=== PATIENT | female | born 1925 | race Caucasian/White ===

== ENCOUNTER 2016-11-20 10:22 | Inpatient (IN) | payer MEDICARE, OTHER ==
[2016-11-20 10:36] VITALS: BMI 29.2
[2016-11-20 12:33] LABS: BASO # 0.1 K/uL (0.0-0.2); EOS # 0.7 K/uL (0.0-0.7); EOS % 7.6 % (0.0-4.0); LYMPH # 1.4 K/uL (1.0-4.3); LYMPH % 16.5 % (20.0-40.0); MEAN CELL VOLUME 94.1 fL (81.0-99.0); MEAN CORPUSCULAR HEMOGLOBIN 30.6 pg (27.0-31.0); MEAN CORPUSCULAR HGB CONC 32.6 g/dL (33.0-37.0); MEAN PLATELET VOLUME 9.7 fL (7.2-11.7); MONO # 0.6 K/uL (0.0-0.8); MONO % 7.1 % (0.0-10.0); NRBC % 0.1 % (0.0-2.0); RED CELL DISTRIBUTION WIDTH 13.9 % (11.5-14.5); WHITE BLOOD COUNT 8.8 K/uL (4.8-10.8)
[2016-11-20 12:40] LABS: INR 1.3
[2016-11-20 12:42] LABS: CHLORIDE 103 mmol/L (98-107)
[2016-11-20 12:43] LABS: POTASSIUM 4.2 mmol/L (3.6-5.2); SODIUM 141 mmol/L (132-148)
[2016-11-20 12:45] LABS: AST/SGOT 30 U/L (14-36); BILIRUBIN,TOTAL 0.8 mg/dL (0.2-1.3); CARBON DIOXIDE 30 mmol/L (22-30); GFR AFRICAN-AMERICAN > 60
[2016-11-20 12:46] LABS: ALKALINE PHOSPHATASE 81 U/L (38-126); ALT/SGPT 19 U/L (9-52); BLOOD UREA NITROGEN 24 mg/dL (7-17); CALCIUM 8.8 mg/dl (8.6-10.4); GLUCOSE,RANDOM 119 mg/dL (65-105); TOTAL PROTEIN 7.4 g/dL (6.3-8.3)
[2016-11-20 12:49] LABS: RBC URINE 4989 /hpf (0-3); URINE BILIRUBIN NEGATIVE (NEGATIVE); URINE BLOOD 3+ (NEGATIVE); URINE GLUCOSE (UA) NORMAL (Normal); URINE KETONE TRACE mg/dL (NEGATIVE); URINE LEUKOCYTE ESTERASE 1+ Leu/uL (Negative); URINE PROTEIN 2+ mg/dL (NEGATIVE); WBC URINE 108 /hpf (0-5)
[2016-11-20 12:50] LABS: URINE COLOR RED (YELLOW)
[2016-11-20] MEDS ORDERED: cefTRIAXone IV 1 gm in Dextros 50 ML IV ONE (13:25)
[2016-11-20] MEDS ORDERED: cefTRIAXone IV 1 gm in Dextros 50 ML IVPB ONE (13:40)
--- NOTE | 2016-11-20 13:58 | C.PDOC ---
History Of Present Illness 89 yr old female presents to the ER with complaints of hematuria since yesterday. Patient also notes of urinary frequency. Reports a history of UTI 2 months ago treated with abx. Denies vaginal bleeding, fever, nausea, vomiting, abdominal pain, dysuria or incontinence. Time Seen by Provider: 11/20/16 11:33 Chief Complaint (Nursing): Female Genitourinary History Per: Patient, Family (Daughter ) History/Exam Limitations: no limitations Onset/Duration Of Symptoms: Days (1) Past Medical History Reviewed: Historical Data, Nursing Documentation, Vital Signs Vital Signs: Last Vital Signs Temp 99.0 F 11/20/16 15:00 Pulse 66 11/20/16 15:00 Resp 18 11/20/16 15:00 BP 138/87 11/20/16 15:00 Pulse Ox 95 11/20/16 15:00 - Medical History PMH: Atrial Fibrillation, Gastrointestinal Ulcer, HTN Family History: States: No Known Family Hx - Social History Hx Alcohol Use: No Hx Substance Use: No - Immunization History Hx Tetanus Toxoid Vaccination: No Hx Influenza Vaccination: Yes (2016) Hx Pneumococcal Vaccination: Yes (2016) Review Of Systems Except As Marked, All Systems Reviewed And Found Negative. Constitutional: Negative for: Fever Gastrointestinal: Negative for: Nausea, Vomiting, Abdominal Pain Genitourinary: Positive for: Frequency (Urinary ), Hematuria. Negative for: Dysuria, Incontinence Physical Exam - Physical Exam Appears: Well, Non-toxic, No Acute Distress Skin: Warm, Dry, No Rash Head: Atraumatic, Normacephalic Eye(s): bilateral: Normal Inspection, EOMI Nose: Normal Oral Mucosa: Moist Chest: Symmetrical, No Tenderness Cardiovascular: Rhythm Regular, No Murmur Respiratory: Normal Breath Sounds, No Rales, No Rhonchi, No Wheezing Gastrointestinal/Abdominal: Soft, No Tenderness, No Guarding, No Rebound, Hernia Back: No CVA Tenderness, No Vertebral Tenderness Extremity: Normal ROM, No Swelling Neurological/Psych: Oriented x3, Normal Speech, Normal Motor ED Course And Treatment - Laboratory Results Result Diagrams: 11/20/16 12:28 11/20/16 12:28 O2 Sat by Pulse Oximetry: 98 Progress Note: PLAN: CBC, CMP, PTT, Urinalysis & Rocephin IV. Case discsused with Dr. Shailesh Patel regarding the patient and agreed upon admission. Disposition - Disposition Disposition: HOSPITALIZED Disposition Time: 14:00 Condition: STABLE - Clinical Impression Clinical Impression: Hematuria, UTI (urinary tract infection) - PA / [employer] / Resident Statement MD/DO has reviewed & agrees with the documentation as recorded. - Scribe Statement The provider has reviewed the documentation as recorded by the Scribe Michell Reyes All medical record entries made by the Koreyibe were at my direction and personally dictated by me. I have reviewed the chart and agree that the record accurately reflects my personal performance of the history, physical exam, medical decision making, and the department course for this patient. I have also personally directed, reviewed, and agree with the discharge instructions and disposition.
--- NOTE | 2016-11-20 17:38 | CP.PCM.HP ---
Past Patient History - Past Social History Smoking Status: Former Smoker - CARDIAC Hx Atrial Fibrillation: Yes Hx Hypertension: Yes - GASTROINTESTINAL Hx Gastrointestinal Disorders: Yes Hx Gastroesophageal Reflux: Yes - PSYCHIATRIC Hx Substance Use: No Meds Allergies/Adverse Reactions: Allergies Allergy/AdvReac Type Severity Reaction Status Date / Time No Known Allergies Allergy Verified 11/20/16 10:35 Physical Exam - Constitutional Appears: Well - Head Exam Head Exam: ATRAUMATIC, NORMAL INSPECTION, NORMOCEPHALIC - Eye Exam Eye Exam: EOMI, Normal appearance, PERRL Pupil Exam: NORMAL ACCOMODATION, PERRL - ENT Exam ENT Exam: Mucous Membranes Moist, Normal Exam - Neck Exam Neck exam: Positive for: Normal Inspection - Respiratory Exam Respiratory Exam: Decreased Breath Sounds - Cardiovascular Exam Cardiovascular Exam: REGULAR RHYTHM, +S1, +S2 - GI/Abdominal Exam GI & Abdominal Exam: Diminished Bowel Sounds, Soft - Rectal Exam Rectal Exam: Deferred Results - Vital Signs Recent Vital Signs: Last Vital Signs Temp 99.0 F 11/20/16 15:00 Pulse 66 11/20/16 15:00 Resp 18 11/20/16 15:00 BP 138/87 11/20/16 15:00 Pulse Ox 95 11/20/16 15:00 - Labs Result Diagrams: 11/20/16 12:28 11/20/16 12:28
[2016-11-20] MEDS ORDERED: Moxifloxacin IV 400mg/250ml NS 400 MG/250 ML BAG IVPB SCH (18:30)
[2016-11-20] MEDS ORDERED: Ciprofloxacin 400mg/200ml D5W 400 MG/200 ML BAG IVPB ONE (20:41)
[2016-11-20] MEDS: Ciprofloxacin 400mg/200ml D5W 400 MG/200 ML BAG IVPB SCH (21:00)
[2016-11-21] MEDS: Ciprofloxacin 400mg/200ml D5W 400 MG/200 ML BAG IVPB SCH ×2 (05:50→18:22)
--- NOTE | 2016-11-21 12:09 | CP.PCM.PN ---
Subjective - Date & Time of Evaluation Date of Evaluation: 11/21/16 Time of Evaluation: 10:00 - Subjective Subjective: service note: Patient is seen in room with her daughter present. History is obtained from daughter. She says the past two days she has been having hematuria with dark red blood and clots. She denies having any fever, chills, nausea, vomiting, or diarrhea. Objective - Vital Signs/Intake and Output Vital Signs (last 24 hours): Temp Pulse Resp BP Pulse Ox 98.8 F 87 20 135/81 98 11/21/16 09:33 11/21/16 11:24 11/21/16 09:33 11/21/16 11:24 11/21/16 11:24 Intake and Output: 11/21/16 11/21/16 06:59 18:59 Intake Total 120 320 Balance 120 320 - Medications Medications: Current Medications Ferrous Sulfate (Feosol) 325 mg PO DAILY [facility] Home Med (Donepezil Hcl [Aricept Odt]) 10 mg PO DAILY [facility] Ciprofloxacin (Cipro 400mg/200ml Dsw) 400 mg in 200 mls @ 133 mls/hr IVPB Q12H [facility] Last Admin: 11/21/16 05:50 Dose: 133 mls/hr - Labs Labs: PT 15.5 SECONDS (9.7-12.2) H 11/20/16 12:28 INR 1.3 11/20/16 12:28 APTT 35 SECONDS (21-34) H 11/20/16 12:28 - Constitutional Appears: Non-toxic, No Acute Distress - Head Exam Head Exam: NORMAL INSPECTION - Eye Exam Eye Exam: Normal appearance - ENT Exam ENT Exam: Normal Exam - Respiratory Exam Respiratory Exam: Clear to Ausculation Bilateral. absent: Rales, Rhonchi, Wheezes - Cardiovascular Exam Cardiovascular Exam: REGULAR RHYTHM, RRR, +S1, +S2. absent: Gallop, Rubs - GI/Abdominal Exam GI & Abdominal Exam: Soft, Normal Bowel Sounds. absent: Tenderness - Extremities Exam Extremities Exam: Normal Inspection. absent: Pedal Edema - Psychiatric Exam Psychiatric exam: Normal Affect, Normal Mood - Skin Skin Exam: Normal Color, Warm Assessment and Plan (1) UTI (urinary tract infection) Assessment & Plan: Patient on IV Cipro, will follow up culture senstivity. Will most likely dc tomorrow. Status: Acute (2) Hematuria Assessment & Plan: Dr. Yuan consulted, help appreciated, he suggested a CT scan and most likely can follow up as an outpatient. We have ordered a CT scan which we will follow up the results. Status: Acute (3) Iron (Fe) deficiency anemia Assessment & Plan: continue her Feosol Status: Acute (4) Dementia Assessment & Plan: continue home medication for now. Status: Acute (5) Prophylactic measure Assessment & Plan: pepcid 20mg, SCDS, hold VTE due to hematuria. Status: Acute
--- NOTE | 2016-11-21 12:50 | CP.PCM.PN ---
Subjective - Date & Time of Evaluation Date of Evaluation: 11/21/16 Time of Evaluation: 12:46 - Subjective Subjective: 89 year old hisp female admitted with gross hematuria,Urine C&S is positive and pt is on antibiotics gross hematuria has stopped.A hemmoragic cystitis. Suggest full course Rx with sensitive antibiotics, ct abdomen and pelvid to ro stone or mass or obstruction, pt should have cysto after uti fully treated this may be done as out patient Objective - Vital Signs/Intake and Output Vital Signs (last 24 hours): Temp Pulse Resp BP Pulse Ox 98.8 F 87 20 135/81 98 11/21/16 09:33 11/21/16 11:24 11/21/16 09:33 11/21/16 11:24 11/21/16 11:24 Intake and Output: 11/21/16 11/21/16 06:59 18:59 Intake Total 120 320 Balance 120 320 - Medications Medications: Current Medications Donepezil HCl (Aricept) 10 mg PO DAILY [facility] Ferrous Sulfate (Feosol) 325 mg PO DAILY [facility] Ciprofloxacin (Cipro 400mg/200ml Dsw) 400 mg in 200 mls @ 133 mls/hr IVPB Q12H [facility] Last Admin: 11/21/16 05:50 Dose: 133 mls/hr - Labs Labs: PT 15.5 SECONDS (9.7-12.2) H 11/20/16 12:28 INR 1.3 11/20/16 12:28 APTT 35 SECONDS (21-34) H 11/20/16 12:28
--- NOTE | 2016-11-21 13:40 | CP.PCM.PN ---
Subjective - Date & Time of Evaluation Date of Evaluation: 11/21/16 Time of Evaluation: 09:40 - Subjective Subjective: clinically same Objective - Vital Signs/Intake and Output Vital Signs (last 24 hours): Temp Pulse Resp BP Pulse Ox 98.8 F 87 20 135/81 98 11/21/16 09:33 11/21/16 11:24 11/21/16 09:33 11/21/16 11:24 11/21/16 11:24 Intake and Output: 11/21/16 11/21/16 06:59 18:59 Intake Total 120 320 Balance 120 320 - Medications Medications: Current Medications Donepezil HCl (Aricept) 10 mg PO DAILY [facility] Ferrous Sulfate (Feosol) 325 mg PO DAILY [facility] Last Admin: 11/21/16 12:50 Dose: 325 mg Ciprofloxacin (Cipro 400mg/200ml Dsw) 400 mg in 200 mls @ 133 mls/hr IVPB Q12H [facility] Last Admin: 11/21/16 05:50 Dose: 133 mls/hr - Labs Labs: PT 15.5 SECONDS (9.7-12.2) H 11/20/16 12:28 INR 1.3 11/20/16 12:28 APTT 35 SECONDS (21-34) H 11/20/16 12:28 - Constitutional Appears: Well - Head Exam Head Exam: ATRAUMATIC, NORMAL INSPECTION, NORMOCEPHALIC - Eye Exam Eye Exam: EOMI, Normal appearance, PERRL Pupil Exam: NORMAL ACCOMODATION, PERRL - ENT Exam ENT Exam: Mucous Membranes Moist, Normal Exam - Neck Exam Neck Exam: Full ROM, Normal Inspection. absent: Lymphadenopathy - Respiratory Exam Respiratory Exam: Decreased Breath Sounds - Cardiovascular Exam Cardiovascular Exam: REGULAR RHYTHM, +S1, +S2 - GI/Abdominal Exam GI & Abdominal Exam: Soft, Diminished Bowel Sounds - Rectal Exam Rectal Exam: Deferred Assessment and Plan (1) HTN (hypertension) Status: Acute (2) Osteoporosis Status: Acute (3) Hypercholesterinemic xanthomatosis Status: Acute (4) Hematuria Status: Acute (5) UTI (urinary tract infection) Status: Acute - Assessment and Plan (Free Text) Plan: Abnormal bleeding either in the urine or bite. [employer]GER consult as an outpatient Dr. Hussein saw the patient use he has pending abdominal CT scan today I spoke to the daughter
--- NOTE | 2016-11-21 14:14 | CT ---
PROCEDURE: CT Abdomen and Pelvis without Oral or IV contrast. HISTORY: hematuria COMPARISON: None available. TECHNIQUE: Contiguous axial images of the abdomen and pelvis. No oral or IV contrast administered. Coronal and Sagittal reformats generated and reviewed. Radiation dose: Total exam DLP = 583.87 mGy-cm. This CT exam was performed using one or more of the following dose reduction techniques: Automated exposure control, adjustment of the mA and/or kV according to patient size, and/or use of iterative reconstruction technique. FINDINGS: There is limited evaluation of the solid organs without the administration of IV contrast. LOWER THORAX: Partially imaged cardiomegaly. Dense coronary artery calcifications. Mild basilar atelectasis. No visible consolidation or pleural effusion. Ground-glass nodular density at the right lung base, possibly infectious or inflammatory. Nodule cannot be entirely excluded. Left pleural plaque, which suggests asbestos related pleural disease. Small hiatal hernia. LIVER: Unremarkable unenhanced appearance. GALLBLADDER AND BILE DUCTS: Cholecystectomy. PANCREAS: Unremarkable unenhanced appearance. SPLEEN: Unremarkable unenhanced appearance. ADRENALS: Bilateral adrenal gland hypertrophy. KIDNEYS AND URETERS: No hydronephrosis or obstructing renal calculus. Prominence of bilateral (right greater than left) ureters. No obstructing calculus identified. BLADDER: Under distention of the urinary bladder precludes adequate evaluation. REPRODUCTIVE: Uterus is present. APPENDIX: Not visualized. No secondary signs of acute appendicitis. BOWEL: The stomach is nondistended. Lack of oral contrast limits evaluation for bowel pathology. The bowel loops appear within normal limits of caliber without evidence of intestinal obstruction. Proximal duodenal diverticulum. Extensive diverticulosis without CT evidence of acute diverticulitis. PERITONEUM: No significant free fluid. No definite free air. LYMPH NODES: No bulky lymphadenopathy identified. VASCULATURE: Dense atherosclerotic calcifications of the aorta and branches. No aortic aneurysm. BONES: Osseous demineralization. Multilevel degenerative changes. Evidence of vertebroplasty at L1. OTHER FINDINGS: Bowel containing anterior abdominal wall hernias/rectus diastases without obstruction. Lower anterior abdominal wall hernia contains both bowel and portions of the urinary bladder. IMPRESSION: No hydronephrosis or obstructing renal calculus. Prominence of bilateral (right greater than left) ureters ; ureteritis is not excluded. No obstructing calculus identified. Under distention of the urinary bladder precludes adequate evaluation. Correlation with urinalysis in order to exclude possibility of infection. Extensive diverticulosis without CT evidence of acute diverticulitis. Bowel containing anterior abdominal wall hernias/rectus diastases without obstruction. Lower anterior abdominal wall hernia contains both bowel and portions of the urinary bladder. Ground-glass nodular density at the right lung base, possibly infectious or inflammatory. Nodule cannot be entirely excluded. Guidelines by the Fleischner society (radiology 2005; 237:395-400) suggests that in patients with low risk for lung cancer, nodules from 5 mm to 6 mm in diameter should have follow-up in approximately 12 months. In patients with high-risk, such as those were smokers, follow-up is recommended in 6 months. Patients with a known malignancy or risk for metastases should receive 3 month follow-up. Additional findings as above.
[2016-11-22] MEDS: Ciprofloxacin 400mg/200ml D5W 400 MG/200 ML BAG IVPB SCH (06:14)
[2016-11-22 08:01] LABS: BASO # 0.1 K/uL (0.0-0.2); BASO % 1.1 % (0.0-2.0); EOS # 0.6 K/uL (0.0-0.7); EOS % 10.5 % (0.0-4.0); HEMATOCRIT 45.2 % (34.0-47.0); LYMPH # 1.2 K/uL (1.0-4.3); LYMPH % 20.7 % (20.0-40.0); MEAN CELL VOLUME 93.2 fL (81.0-99.0); MEAN CORPUSCULAR HEMOGLOBIN 30.6 pg (27.0-31.0); MEAN CORPUSCULAR HGB CONC 32.8 g/dL (33.0-37.0); MEAN PLATELET VOLUME 9.1 fL (7.2-11.7); MONO # 0.4 K/uL (0.0-0.8); MONO % 7.2 % (0.0-10.0); NRBC % 0.1 % (0.0-2.0); RED CELL DISTRIBUTION WIDTH 13.8 % (11.5-14.5); WHITE BLOOD COUNT 5.6 K/uL (4.8-10.8)
[2016-11-22 09:35] LABS: CHLORIDE 101 mmol/L (98-107); SODIUM 139 mmol/L (132-148)
[2016-11-22 09:36] LABS: POTASSIUM 3.8 mmol/L (3.6-5.2)
[2016-11-22 09:38] LABS: ALKALINE PHOSPHATASE 72 U/L (38-126); AST/SGOT 29 U/L (14-36); BILIRUBIN,TOTAL 0.7 mg/dL (0.2-1.3); BLOOD UREA NITROGEN 13 mg/dL (7-17); CARBON DIOXIDE 31 mmol/L (22-30); GFR AFRICAN-AMERICAN > 60; GLUCOSE,RANDOM 102 mg/dL (65-105); PHOSPHOROUS 3.4 mg/dL (2.5-4.5); TOTAL PROTEIN 7.1 g/dL (6.3-8.3)
[2016-11-22 09:39] LABS: ALT/SGPT 16 U/L (9-52); CALCIUM 8.9 mg/dl (8.6-10.4); MAGNESIUM 2.1 mg/dL (1.6-2.3)
[2016-11-22] MEDS ORDERED: Ergocalciferol 50,000 Intl Units Cap PO SCH (10:00)
[2016-11-22 10:24] VITALS: BP 142/80; PULSE 60; RESP 20; TEMP 98; O2SAT 96
[2016-11-22] MEDS ORDERED: cefTRIAXone IV 1 gm in Dextros 50 ML IVPB SCH (11:00)
--- NOTE | 2016-11-22 11:13 | CP.PCM.PN ---
Subjective - Date & Time of Evaluation Date of Evaluation: 11/22/16 Time of Evaluation: 11:00 - Subjective Subjective: Dr. Josse Patel note: Patient is seen in room. She has no complaints. She did have one episode of emesis pre nursing staff that resolved after recieving 4mg of Zofran. She says she has no more hematuria or painful urination. Objective - Vital Signs/Intake and Output Vital Signs (last 24 hours): Temp Pulse Resp BP Pulse Ox 98 F 60 20 142/80 96 11/22/16 08:00 11/22/16 08:00 11/22/16 08:00 11/22/16 08:00 11/22/16 08:00 Intake and Output: 11/22/16 11/22/16 06:59 18:59 Intake Total 940 Balance 940 - Medications Medications: Current Medications Ascorbic Acid (Vitamin C 500 Mg Tab) 500 mg PO DAILY [facility] Last Admin: 11/22/16 09:09 Dose: 500 mg Diltiazem HCl (Cardizem) 60 mg PO DAILY [facility] Last Admin: 11/22/16 09:10 Dose: 60 mg Donepezil HCl (Aricept) 10 mg PO DAILY [facility] Last Admin: 11/22/16 09:10 Dose: 10 mg Ergocalciferol (Drisdol 50,000 Intl Units Cap) 1 cap PO QWK [facility] Last Admin: 11/22/16 09:10 Dose: 1 cap Famotidine (Pepcid) 20 mg PO DAILY [facility] Last Admin: 11/22/16 09:10 Dose: 20 mg Ferrous Sulfate (Feosol) 325 mg PO DAILY [facility] Last Admin: 11/22/16 09:10 Dose: 325 mg Ceftriaxone Sodium (Rocephin Iv 1 Gm Duplex) 50 mls @ 100 mls/hr IVPB DAILY [facility] - Labs Labs: 11/22/16 07:41 11/22/16 07:41 PT 15.5 SECONDS (9.7-12.2) H 11/20/16 12:28 INR 1.3 11/20/16 12:28 APTT 35 SECONDS (21-34) H 11/20/16 12:28 - Constitutional Appears: Non-toxic, No Acute Distress - Head Exam Head Exam: NORMAL INSPECTION - Eye Exam Eye Exam: Normal appearance - Respiratory Exam Respiratory Exam: Clear to Ausculation Bilateral. absent: Rales, Rhonchi, Wheezes - Cardiovascular Exam Cardiovascular Exam: REGULAR RHYTHM, RRR, +S1, +S2. absent: Gallop, Rubs - GI/Abdominal Exam GI & Abdominal Exam: Soft, Normal Bowel Sounds. absent: Tenderness - Extremities Exam Extremities Exam: Normal Inspection. absent: Pedal Edema - Back Exam Back Exam: NORMAL INSPECTION - Neurological Exam Neurological Exam: Oriented x3 - Psychiatric Exam Psychiatric exam: Normal Affect, Normal Mood - Skin Skin Exam: Dry, Normal Color Assessment and Plan (1) UTI (urinary tract infection) Assessment & Plan: urine culture is resitant to Cipro and Macrobid, discharge patient with 7 days of Augmentin 875-125mg bid. She will need to see after discharge. Status: Acute (2) Hematuria Status: Acute (3) Iron (Fe) deficiency anemia Status: Acute (4) Dementia Status: Acute (5) Prophylactic measure Status: Acute
--- NOTE | 2016-11-22 11:16 | CP.PCM.PN ---
Subjective - Date & Time of Evaluation Date of Evaluation: 11/22/16 Time of Evaluation: 09:20 - Subjective Subjective: clinically same Objective - Vital Signs/Intake and Output Vital Signs (last 24 hours): Temp Pulse Resp BP Pulse Ox 98 F 60 20 142/80 96 11/22/16 08:00 11/22/16 08:00 11/22/16 08:00 11/22/16 08:00 11/22/16 08:00 Intake and Output: 11/22/16 11/22/16 06:59 18:59 Intake Total 940 Balance 940 - Medications Medications: Current Medications Ascorbic Acid (Vitamin C 500 Mg Tab) 500 mg PO DAILY [facility] Last Admin: 11/22/16 09:09 Dose: 500 mg Diltiazem HCl (Cardizem) 60 mg PO DAILY [facility] Last Admin: 11/22/16 09:10 Dose: 60 mg Donepezil HCl (Aricept) 10 mg PO DAILY [facility] Last Admin: 11/22/16 09:10 Dose: 10 mg Ergocalciferol (Drisdol 50,000 Intl Units Cap) 1 cap PO QWK [facility] Last Admin: 11/22/16 09:10 Dose: 1 cap Famotidine (Pepcid) 20 mg PO DAILY [facility] Last Admin: 11/22/16 09:10 Dose: 20 mg Ferrous Sulfate (Feosol) 325 mg PO DAILY [facility] Last Admin: 11/22/16 09:10 Dose: 325 mg Ceftriaxone Sodium (Rocephin Iv 1 Gm Duplex) 50 mls @ 100 mls/hr IVPB DAILY [facility] - Labs Labs: 11/22/16 07:41 11/22/16 07:41 PT 15.5 SECONDS (9.7-12.2) H 11/20/16 12:28 INR 1.3 11/20/16 12:28 APTT 35 SECONDS (21-34) H 11/20/16 12:28 - Constitutional Appears: Well - Head Exam Head Exam: ATRAUMATIC, NORMAL INSPECTION, NORMOCEPHALIC - Eye Exam Eye Exam: EOMI, Normal appearance, PERRL Pupil Exam: NORMAL ACCOMODATION, PERRL - ENT Exam ENT Exam: Mucous Membranes Moist, Normal Exam - Neck Exam Neck Exam: Full ROM, Normal Inspection. absent: Lymphadenopathy - Respiratory Exam Respiratory Exam: Decreased Breath Sounds - Cardiovascular Exam Cardiovascular Exam: REGULAR RHYTHM, +S1, +S2 - GI/Abdominal Exam GI & Abdominal Exam: Soft, Diminished Bowel Sounds - Rectal Exam Rectal Exam: Deferred Assessment and Plan (1) HTN (hypertension) Status: Acute (2) Osteoporosis Status: Acute (3) Hypercholesterinemic xanthomatosis Status: Acute (4) Hematuria Status: Acute (5) UTI (urinary tract infection) Status: Acute
== END 2016-11-22 16:00 | disposition home or self-care (01) | DRG 690 ==
LOC: C.ER 10:22 → C.9E 13:49 → C.3T 21:03
PROVIDERS: ADMIT Internal Medicine Nephrology; ATTEND Internal Medicine Nephrology
DX: N30.91 Cystitis, unspecified with hematuria (principal); I48.91 Unspecified atrial fibrillation; F03.90 Unspecified dementia, unspecified severity, without behavioral disturbance, psychotic disturbance, mood disturbance, and anxiety; I10 Essential (primary) hypertension; Z87.891 Personal history of nicotine dependence; K21.9 Gastro-esophageal reflux disease without esophagitis; D50.9 Iron deficiency anemia, unspecified; M81.0 Age-related osteoporosis without current pathological fracture; E78.00 Pure hypercholesterolemia, unspecified